=== PATIENT | female | born 1975 | race Caucasian/White ===

== ENCOUNTER → 2024-05-11 08:50 | Outpatient (CLI) | payer OTHER, SELFPAY ==
[2024-05-15 22:36] LABS: Anti Mullerian Hormone <0.015 ng/mL (.)
== END ==
PROVIDERS: Referring Provider Obstetrics & Gynecology; Visit Provider Obstetrics & Gynecology
DX: E28.319 Asymptomatic premature menopause (principal)
CPT/HCPCS: 36415; 82397

== ENCOUNTER → 2024-05-18 15:28 | Outpatient (CLI) | payer OTHER, SELFPAY ==
--- NOTE | 2024-05-18 15:29 | DI.US.S_ITS ---
PROCEDURE: US PELVIC COMPLETE INDICATIONS: premature menopause, eval endometrial thickness TECHNIQUE: Real-time scanning was performed of the pelvic organs, with image documentation. Additional endovaginal scanning was necessary due to incomplete visualization of the adnexal and endometrial structures by transabdominal scanning. COMPARISON: None. FINDINGS: Uterus: Uterus is anteverted and normal in size at 4.9 x 1.9 x 3.1 cm. The myometrium is homogeneous. The endometrium measures 2 mm combined thickness. Ovaries: The right ovary measures 1.8 x 1.0 x 1.0 cm, with a calculated ovarian volume of 1.4 cc. The left ovary measures 1.6 x 1.0 x 1.0 cm, with a calculated ovarian volume of 1.3 cc. The ovaries have a normal sonographic appearance. Less than 12 follicles can be seen in each ovary. No adnexal masses are seen. Other: No pathologic free abdominal or pelvic fluid. IMPRESSION: Overall uterine and ovarian volume is less than expected for patient's stated age. Endometrium measures 2 mm, also decreased for stated age. We strive to produce accurate, complete, and clear reports of imaging services. To assist us in improving patient care, this report was composed using standard report templates and voice recognition software. Therefore, it may contain abnormal punctuation, insertions and/or omissions. Occasional wrong-word or sound-alike substitutions may occur. Though we review the report and make efforts to correct it, we do recommend that the report be read carefully in proper context to recognize any text inaccuracies. Dictated by: Daphne Taylor M.D. on 05/24/2024 at 17:37 Approved by: Daphne Taylor M.D. on 05/24/2024 at 17:38
== END ==
PROVIDERS: Referring Provider Obstetrics & Gynecology; Visit Provider Obstetrics & Gynecology
DX: E28.319 Asymptomatic premature menopause (principal)
CPT/HCPCS: 76856